=== PATIENT | female | born 1975 | race Caucasian/White ===

== ENCOUNTER 2018-05-20 12:05 | Outpatient (REF) | payer BC, SELFPAY ==
[2018-05-20 21:32] LABS: HCT 38.3 % (36.0-46.0); HGB 12.5 g/dL (12.0-15.5); Mean Corp. HGB Concentration 32.6 g/dL (32.0-36.0); Mean Corpuscular Hemoglobin 29.5 pg (27.0-33.0); Mean Corpuscular Volume 90.3 fL (80-95); Mean Platelet Volume 11.8 fL (8.0-11.0); Platelet Count 175 x1000/uL (130-400); RBC 4.24 m/cumm (4.00-5.20); RBC Distribution Width 12.5 % (11.7-14.6); White Blood Cell Count 5.05 k/cumm (4.4-10.8)
[2018-05-20 21:38] LABS: Cholesterol 121 mg/dL (50-200); HDL Cholesterol 42 mg/dL (40-60); LDL CHOLESTEROL 71 mg/dL (<100); Triglyceride 33 mg/dL (30-150)
== END 2018-05-20 12:25 ==
LOC: NCHCN 12:05
PROVIDERS: PCP Family Medicine; Visit Provider Family Medicine
DX: Z00.00 Encounter for general adult medical examination without abnormal findings (principal); R00.2 Palpitations
CPT/HCPCS: 80061; 83721; 85027

== ENCOUNTER 2020-01-27 09:34 | Outpatient (REF) | payer BC, SELFPAY ==
[2020-01-27 22:12] LABS: Calculated LDL 91 mg/dL (<100); Cholesterol 146 mg/dL (<200); HDL Cholesterol 46 mg/dL (40-60); Triglyceride 48 mg/dL (<150)
== END 2020-01-27 09:54 ==
LOC: NCHCN 09:34
PROVIDERS: PCP Family Medicine; Visit Provider Internal Medicine
DX: N05.9 Unspecified nephritic syndrome with unspecified morphologic changes (principal); Z79.899 Other long term (current) drug therapy
CPT/HCPCS: 80061

== ENCOUNTER 2020-06-08 19:07 | Outpatient (REF) | payer BC, SELFPAY ==
[2020-06-08 21:22] LABS: Abs Immature Grans 0.03 10^3/uL (0.0-0.06); Absolute Basophil Count 0.04 10^3/uL (0.0-0.2); Absolute Eosinophil Count 0.11 10^3/uL (0.0-0.7); Absolute Lymphocyte Count 1.95 10^3/uL (1.2-3.4); Absolute Monocyte Count 0.55 10^3/uL (0.1-0.8); Absolute Neutrophil Count 5.25 10^3/uL (1.2-6.7); Basophils % 0.5; Eosinophils % 1.4; HCT 38.7 % (36.0-46.0); HGB 12.8 g/dL (11.2-15.7); Immature Grans % 0.4; Lymphocytes % 24.6; MCH 30.7 pg (27.0-33.0); MCHC 33.1 % (32.0-36.0); MCV 92.8 fL (80-95); MPV 12.2 fL (8.0-11.0); Monocytes % 6.9; Neutrophils % 66.2; Nucleated RBC 0 %; Platelet Count 154 10^3/uL (130-400); RBC 4.17 10^6/uL (3.93-5.22); RDW 11.8 % (11.7-14.6); RDW-SD 40.1 fL; WBC 7.93 10^3/uL (4.4-10.8)
[2020-06-08 22:01] LABS: C-Reactive Protein 0.05 mg/dL (0.0-0.3)
== END 2020-06-08 19:08 | disposition home or self-care (01) ==
LOC: NCHCN 19:07
PROVIDERS: PCP Family Medicine; Visit Provider Family Medicine
DX: R68.83 Chills (without fever) (principal); G50.1 Atypical facial pain
CPT/HCPCS: 85025; 86140

== ENCOUNTER 2021-06-18 15:12 | Outpatient (REF) | payer BC, SELFPAY | END 2021-06-18 15:13 | disposition home or self-care (01) | LOC: NCHCN 15:12 | PROVIDERS: PCP Family Medicine; Visit Provider Family Medicine | DX: R14.1 Gas pain (principal); R14.0 Abdominal distension (gaseous); R10.9 Unspecified abdominal pain | CPT/HCPCS: 83630; 87177 ==

== ENCOUNTER 2021-06-19 18:27 | Outpatient (REF) | payer BC, SELFPAY | END 2021-06-19 18:28 | disposition home or self-care (01) | LOC: NCHCN 18:27 | PROVIDERS: PCP Family Medicine; Visit Provider Family Medicine | DX: R14.1 Gas pain (principal); R14.0 Abdominal distension (gaseous) | CPT/HCPCS: 87177 ==

== ENCOUNTER 2021-07-24 11:11 | Outpatient (CLI) | payer BC, SELFPAY ==
[2021-07-24 12:36] VITALS: BP 116/76; PULSE 81; RESP 18; TEMP 36.9; O2SAT 98
[2021-07-24 13:48] VITALS: BP 104/66; RESP 20; O2SAT 97
== END 2021-07-24 11:12 | disposition home or self-care (01) ==
LOC: INF 11:13
PROVIDERS: PCP Family Medicine; Visit Provider Family Medicine
DX: U07.1 COVID-19 (principal)
CPT/HCPCS: 96365; Q0047

== ENCOUNTER 2021-11-07 10:56 | Outpatient (REF) | payer BC, SELFPAY ==
[2021-11-11 13:25] LABS: IgA 132 mg/dL (85-499); Interpretation (See Note); Tissue Transglutaminase IgA <1.2 U/mL (<4.0)
== END 2021-11-07 10:57 | disposition home or self-care (01) ==
LOC: NCHCN 10:56
PROVIDERS: PCP Family Medicine; Visit Provider Family Medicine
DX: R14.0 Abdominal distension (gaseous) (principal); R14.1 Gas pain; E66.3 Overweight
CPT/HCPCS: 82784; 83516; 84443

== ENCOUNTER 2022-04-22 15:31 | Outpatient (REF) | payer OTHER, SELFPAY ==
--- NOTE | 2022-04-22 13:45 | PAPFT_PTH ---
PATIENT: Martina Alvarez LOC: [facility]#:[id number] AGE/SX: 46/F ROOM: RE04/22/[address]: Collette Choi : 1975 BED: DIS: 04/22/2022 SPEC #: [id number] RECD: 04/23/22 12:58 STATUS: [facility] REQ #: [id number] JULIUS: 04/22/22 13:[address]: Collette Choi DEPT: [facility] Cytology RECD BY: Rox Dean ENTERED: 04/23/22 12:59 SP TYPE: PAPFT OTHR DR: Felicitas Ott Tissues: 1 - CX/ENDOCX FOR PAP SMEARS Procedures: PAP THIN PREP/[facility] Screening HPV DNA PROBE Comments: [id number]
== END 2022-04-22 15:32 | disposition home or self-care (01) ==
LOC: NCHCN 15:31
PROVIDERS: PCP Family Medicine; Visit Provider Family Medicine
DX: Z12.4 Encounter for screening for malignant neoplasm of cervix (principal); Z11.51 Encounter for screening for human papillomavirus (HPV); Z00.00 Encounter for general adult medical examination without abnormal findings
CPT/HCPCS: 88142; 87624

== ENCOUNTER 2024-02-15 18:23 | Outpatient (REF) | payer OTHER, SELFPAY ==
[2024-02-15 21:58] LABS: HCT 37.3 % (36.0-46.0); HGB 12.2 g/dL (11.2-15.7); MCHC 32.7 % (32.0-36.0); MCV 95 fL (80-95); MPV 11.5 fL (8.0-11.0); Platelet Count 223 10^3/uL (130-400); RBC 3.94 10^6/uL (3.93-5.22); RDW 13.3 % (11.7-14.6); RDW-SD 46.8 fL; WBC 6.37 10^3/uL (4.4-10.8)
[2024-02-15 22:17] LABS: ALT 42 U/L (14-59); AST 24 U/L (15-37); Alkaline Phosphatase 41 U/L (46-116); Anion Gap 10.4 mmol/L (3-11); BUN 14 mg/dL (7-18); Bilirubin, Total 0.37 mg/dL (0.2-1.0); CO2 25.6 mmol/L (21.0-32.0); CREATININE 0.7 mg/dL (0.55-1.02); Calcium 8.7 mg/dL (8.5-10.1); Chloride 108 mmol/L (98-107); Estimated GFR 107.95 (mL/min/1.73m2); Ferritin 16 ng/mL (8-252); Glucose 93 mg/dL (74-106); Potassium 4.1 mmol/L (3.5-5.1); Sodium 144 mmol/L (136-145)
[2024-02-16 12:49] LABS: Abs Immature Grans 0.01 10^3/uL (0.0-0.06); Absolute Basophil Count 0.02 10^3/uL (0.0-0.2); Absolute Eosinophil Count 0.03 10^3/uL (0.0-0.7); Absolute Lymphocyte Count 2.33 10^3/uL (1.2-3.4); Absolute Monocyte Count 0.44 10^3/uL (0.1-0.8); Absolute Neutrophil Count 3.52 10^3/uL (1.2-6.7); Basophils % 0.3 %; Eosinophils % 0.5 %; Immature Grans % 0.2 %; Lymphocytes % 36.7 %; Monocytes % 6.9 %; Neutrophils % 55.4 %
[2024-02-16 13:18] LABS: C-Reactive Protein < 0.50 mg/dL (<or=0.5)
== END 2024-02-15 18:24 | disposition home or self-care (01) ==
LOC: NCHCN 18:23
PROVIDERS: Internal Medicine Rheumatology; PCP Family Medicine; Visit Provider Nurse Practitioner Family
DX: R00.2 Palpitations (principal)
CPT/HCPCS: 80053; 85027; 82728; 84443; 85007; 86140

== ENCOUNTER 2024-06-08 15:59 | Outpatient (REF) | payer OTHER, SELFPAY ==
[2024-06-08 14:16] LABS: ALT 112 U/L (14-59); AST 37 U/L (15-37); Alkaline Phosphatase 67 U/L (46-116); Bilirubin, Direct 0.1 mg/dL (0.0-0.2); Total Protein 7.3 g/dL (6.4-8.2)
== END 2024-06-08 16:00 | disposition home or self-care (01) ==
LOC: NCHCN 15:59
PROVIDERS: PCP Family Medicine; Visit Provider Internal Medicine
DX: R74.01 Elevation of levels of liver transaminase levels (principal)
CPT/HCPCS: 80076

== ENCOUNTER 2025-01-03 15:59 | Outpatient (REF) | payer OTHER, SELFPAY ==
[2025-01-03 21:10] LABS: MCHC 34.2 % (32.0-36.0)
[2025-01-03 21:18] LABS: HCT 35.4 % (36.0-46.0); HGB 12.1 g/dL (11.2-15.7); MCH 30.9 pg (27.0-33.0); MCV 91 fL (80-95); MPV 11.3 fL (8.0-11.0); Platelet Count 189 10^3/uL (130-400); RBC 3.91 10^6/uL (3.93-5.22); RDW 12.0 % (11.7-14.6); RDW-SD 39.4 fL; WBC 6.59 10^3/uL (4.4-10.8)
[2025-01-03 21:19] LABS: Iron 72 ug/dL (50-170); Total Iron Binding Capacity 321 ug/dL (250-450); Transferrin Sat 22 % (15-50)
[2025-01-03 21:44] LABS: Ferritin 26 ng/mL (8-252); Vitamin B12 823 pg/mL (193-986)
[2025-01-03 21:46] LABS: Folate > 20.0 ng/mL (8.6-20.0)
[2025-01-04 18:09] LABS: Hepatitis C Ab w Rflx HCV PCR Negative (Negative)
[2025-01-04 18:12] LABS: HIV-1/2 Ag & Ab Screen Negative (Negative)
[2025-01-05 11:07] LABS: Transferrin 248 mg/dL (201-352)
== END 2025-01-03 16:00 | disposition home or self-care (01) ==
LOC: NCHCN 15:59
PROVIDERS: PCP Family Medicine; Visit Provider Nurse Practitioner Family
DX: D64.9 Anemia, unspecified (principal); Z11.59 Encounter for screening for other viral diseases
CPT/HCPCS: 82784; 83516; 85027; 86803; 87389; 82607; 82728; 82746; 83540; 83550; 84466; 85045

== ENCOUNTER 2025-02-09 15:12 | Outpatient (REF) | payer OTHER, SELFPAY ==
[2025-02-09 21:02] LABS: HCT 38.5 % (36.0-46.0); HGB 13.0 g/dL (11.2-15.7); MCH 30.2 pg (27.0-33.0); MCHC 33.8 % (32.0-36.0); MCV 89 fL (80-95); MPV 11.6 fL (8.0-11.0); Platelet Count 203 10^3/uL (130-400); RBC 4.31 10^6/uL (3.93-5.22); RDW 11.9 % (11.7-14.6); RDW-SD 39.1 fL; WBC 8.20 10^3/uL (4.4-10.8)
[2025-02-09 21:42] LABS: Ferritin 24 ng/mL (8-252)
== END 2025-02-09 15:13 | disposition home or self-care (01) ==
LOC: NCHCN 15:12
PROVIDERS: PCP Family Medicine; Visit Provider Nurse Practitioner Family
DX: D64.9 Anemia, unspecified (principal)
CPT/HCPCS: 85027; 82728

== ENCOUNTER 2025-04-18 12:24 | Outpatient (REF) | payer OTHER, SELFPAY ==
[2025-04-18 15:38] LABS: Iron 122 ug/dL (50-170); Total Iron Binding Capacity 308 ug/dL (250-425); Transferrin Sat 40 % (15-50)
[2025-04-18 15:44] LABS: Ferritin 13 ng/mL (7-271)
== END 2025-04-18 12:25 | disposition home or self-care (01) ==
LOC: NCHCN 12:24
PROVIDERS: PCP Family Medicine; Visit Provider Nurse Practitioner Family
DX: R77.8 Other specified abnormalities of plasma proteins (principal)
CPT/HCPCS: 82728; 83540; 83550

== ENCOUNTER 2025-04-21 16:45 | Outpatient (REF) | payer OTHER, SELFPAY ==
[2025-04-25 12:51] LABS: Helicobacter pylori Ag, Feces Negative (Negative)
== END 2025-04-21 16:46 | disposition home or self-care (01) ==
LOC: NCHCN 16:45
PROVIDERS: PCP Family Medicine; Visit Provider Nurse Practitioner Family
DX: R77.8 Other specified abnormalities of plasma proteins (principal)
CPT/HCPCS: 87338